=== PATIENT | male | born 2000 | race Caucasian/White ===

== ENCOUNTER 2025-05-28 12:03 | Emergency (ER) | payer OTHER, SELFPAY ==
[2025-05-28 12:09] VITALS: BP 132/75; PULSE 56; TEMP 36.4; O2SAT 100; BMI 20.1
--- NOTE | 2025-05-28 12:20 | PC.NURSE ---
pt was already seen in [facility] last week after puncturing his R ring finger with sharp metal object at work - completed paperwork and [facility] testing. told pt there was no metal in finger. follow up with UC and had xrays repeated, who told him he clearly had a piece of metal in fingernail and referred to hand specialist. pt states pain is getting worse and will swell on and off. motrin at home not helping.
--- NOTE | 2025-05-28 12:25 | XR_ITS ---
[facility] [place] [id number] Patient Name: ANUJA ESCOTO MRN: [id number] date: 2000 Sex: M Assigned Patient Location: ER Current Patient Location: ER Accession/Order Number: [id number] Exam Date: 05/28/2025 12:49 Report Date: 05/28/2025 12:50 At the request of: KENYA NUNEZ MD Procedure: XR hand RT min 3V XR hand RT min 3V 05/28/2025 12:37 PM SIGNS AND SYMPTOMS: ^poss FB, metal, under ring fingernail, pain and swelling PROTOCOL: Frontal, lateral, and oblique radiographs of the right hand COMPARISON: None FINDINGS: There is a 3 mm radiodense foreign body along the nailbed of the dorsal surface of the right fourth digit distally. There is accompanying soft tissue swelling. There is no fracture or dislocation. The joint spaces are preserved. XR/XR hand RT min 3V IMPRESSION: There is a 3 mm radiodense foreign body along the nailbed of the dorsal surface of the right fourth digit distally. There is accompanying soft tissue swelling. Impression dictated by: Ilia Pichardo M.D. 05/28/2025 12:50 PM Dictation Location: [place] [address] Electronically authenticated by: [id number] Y Date: 05/28/2025 12:50
[2025-05-28] MEDS: DIPHTH,PERTUSS(ACELL),TET VAC 0.5 ML SYRINGE IM (12:45)
--- NOTE | 2025-05-28 13:23 | ED_ITS ---
HPI HPI - General Adult General Chief complaint: Wound/Laceration Stated complaint: BWC; METAL IN R RING FINGER- 05/22/25 Time Seen by Provider: 05/28/25 12:05 Source: patient and family Mode of arrival: walk-in Limitations: no limitations History of Present Illness HPI narrative: 25-year-old male presents to the emergency department for foreign body. It has been there for 6 days and its under his right ring finger nail. He went to another hospital and he was told that there was not anything there. He sees something there and was concerned so he came in. It has been a long time since he had a tetanus shot, more than 10 years. Related Data Previous Rx's ?Medication ?Instructions ?Recorded cephalexin 500 mg capsule 500 mg PO TID 5 days #15 cap s 05/28/25 Allergies Allergy/AdvReac Type Severity Reaction Status Date / Time No Known Drug Allergies Allergy Verified 05/28/25 12:09 Review of Systems ROS Narrative A ten point review of systems is negative except as noted above. PFSH PFSH Social History Little interest or pleasure in doing things: not at all Feeling down, depressed, or hopeless: not at all Exam Narrative Exam Narrative: Nurses note and vital signs reviewed and patient is not hypoxic. General: The patient appears well and in no apparent distress. Patient is resting comfortably on cart. Skin: Warm, dry, no pallor noted. There is no rash noted. Head: Normocephalic, atraumatic Eye: Normal conjunctiva, no drainage Ears, Nose, Mouth, and Throat: oral mucosa is moist. Nares patent. Cardiovascular: Regular Rate and Rhythm Respiratory: Patient is in no distress, no accessory muscle use, lungs are clear to auscultation, no wheezing, rales or rhonchi Back: non-tender GI: Soft and nontender Musculoskeletal: Under the right fourth fingernail is an oblong dark area which is well-defined. There is no erythema of the finger. Neurological: A&O, normal speech Psychiatric: Cooperative Constitutional Vital Signs, click to edit/add: Last Vital Signs Temp 97.6 F 05/28/25 12:09 Pulse 56 L 05/28/25 12:09 Resp 18 05/28/25 12:09 BP 132/75 05/28/25 12:09 Pulse Ox 100 05/28/25 12:09 O2 Del Method Room Air 05/28/25 12:09 Course Vital Signs Vital signs: Vital Signs Temperature 97.6 F 05/28/25 12:09 Pulse Rate 56 L 05/28/25 12:09 Respiratory Rate 18 05/28/25 12:09 Blood Pressure 132/75 05/28/25 12:09 Pulse Oximetry 100 05/28/25 12:09 Oxygen Delivery Method Room Air 05/28/25 12:09 Temperature 97.6 F 05/28/25 12:09 Pulse Rate 56 L 05/28/25 12:09 Respiratory Rate 18 05/28/25 12:09 Blood Pressure 132/75 05/28/25 12:09 Pulse Oximetry 100 05/28/25 12:09 Oxygen Delivery Method Room Air 05/28/25 12:09 Medical Decision Making MDM Narrative Medical decision making narrative: The following procedure was performed by me. Finger block applied with 1% lidocaine without epinephrine resulting in complete skin anesthesia. The area was prepped with Betadine x 3 and draped sterilely. Using splinter forceps the foreign body was removed in several pieces. There was no residual foreign body. He is placed on a short course of Keflex prophylactically and tetanus is updated. Treatment diagnosis and follow-up were discussed with the patient. Differential Diagnosis Differential Diagnosis: Foreign body, hematoma Imaging Data Right hand x-ray: Radiologist's impression: ITS Impressions Hand X-Ray 05/28/25 12:25 IMPRESSION: There is a 3 mm radiodense foreign body along the nailbed of the dorsal surface of the right fourth digit distally. There is accompanying soft tissue swelling. Impression dictated by: Ilia Pichardo M.D. 05/28/2025 12:50 PM Dictation Location: [place] [address] Electronically authenticated by: [id number] Y Date: 05/28/2025 12:50 Discharge Plan Discharge Chief Complaint: Wound/Laceration Clinical Impression: Foreign body (FB) in soft tissue Patient Disposition: Home, Self-Care Time of Disposition Decision: 13:21 Condition: Good Mode of Transportation: Private Vehicle Prescriptions / Home Meds: New cephalexin 500 mg capsule 500 mg PO TID 5 Days Qty: 15 0RF Print Language: Croatian Instructions: Soft Tissue Foreign Body (ED) Additional Instructions: Leave tube gauze on for 24 hours. Remove and apply bandage daily. Referrals: Physician,Non-Staff, MD [Primary Care Provider] - 1 week
[2025-05-28] MEDS: LIDOCAINE HCL 1% 100 MG/10 ML MDV INJ (13:35)
== END 2025-05-28 13:39 | disposition home or self-care (01) ==
PROVIDERS: Emergency Provider Emergency Medicine; PCP Nurse Practitioner Family
DX: S60.454A Superficial foreign body of right ring finger, initial encounter (principal); X58.XXXA Exposure to other specified factors, initial encounter
CPT/HCPCS: 64450; 73130; 90471; 99283